=== PATIENT | female | born 1985 | race African-American/Black ===

== ENCOUNTER 2017-04-28 15:18 | Emergency (ER) | payer OTHER ==
[2017-04-28 15:37] VITALS: BMI 23.3
--- NOTE | 2017-04-28 15:39 | PDOC ---
Rapid Medical Evaluation Time Seen by Provider: 04/28/17 15:33 Medical Evaluation: Allergies Allergy/AdvReac Type Severity Reaction Status Date / Time No Known Allergies Allergy Verified 02/23/17 21:32 04/28/17 15:33 I have performed a brief in-person evaluation of this patient. The patient presents with a chief complaint of: 34 weeks (due date 06/09 ), denies any pain, sent by [facility] for "high heart rate" per paperwork BP 80s/60s, tachy to 130s , denies SOB, was at another hospital "20 minutes ago and i left bc it smelled like cigarettes", "i feel good" Pertinent physical exam findings: HR 134, well appearing I have ordered the following: CBC, CMP, T&S, PT/INR, ekg The patient will proceed to the ED for further evaluation. Discharge Disposition - Diagnosis Tachycardia - Referrals - Patient Instructions - Post Discharge Activity
[2017-04-28 16:43] LABS: BASO % 0.5 % (0-2.0); EOS % 1.1 % (0-4.5); HEMATOCRIT 34.1 % (32.4-45.2); HEMOGLOBIN 11.2 GM/dL (10.7-15.3); LYMPH % 16.4 % (8-40); MCH 29.8 pg (25.7-33.7); MCHC 32.9 g/dl (32.0-36.0); MEAN CELL VOLUME 90.6 fl (80-96); MEAN PLT VOLUME 7.7 fl (7.5-11.1); MONO % 9.4 % (3.8-10.2); NEUT % 72.6 % (42.8-82.8); PLATELET COUNT 393 K/MM3 (134-434); RBC 3.77 M/mm3 (3.60-5.2); RDW 13.9 % (11.6-15.6); WHITE BLOOD COUNT 8.9 K/mm3 (4.0-10.0)
[2017-04-28 17:01] LABS: INR 1.01 (0.82-1.09); PROTHROMBIN TIME (PATIENT) 11.4 SEC (9.98-11.88)
[2017-04-28 17:12] LABS: ALBUMIN 2.5 g/dl (3.4-5.0); ALK PHOS 330 U/L (45-117); ANION GAP 8 (8-16); BILIRUBIN,TOTAL 0.4 mg/dL (0.2-1.0); BLOOD UREA NITROGEN 5 mg/dL (7-18); CALCIUM 8.7 mg/dL (8.5-10.1); CHLORIDE 103 mmol/L (98-107); CO2 25 mmol/L (21-32); CREATININE 0.5 mg/dL (0.55-1.02); GLUCOSE,RANDOM 61 mg/dL (74-106); POTASSIUM 4.2 mmol/L (3.5-5.1); SGOT/AST 85 U/L (15-37); SGPT/ALT 30 U/L (12-78); SODIUM 136 mmol/L (136-145); TOT PROT 6.8 g/dl (6.4-8.2)
[2017-04-28] MEDS ORDERED: SODIUM CHLORIDE 1,000 ML IV STA (17:13)
--- NOTE | 2017-04-28 17:25 | PDOC ---
History of Present Illness - General Chief Complaint: Irregular Heart Beat Stated Complaint: RAPID HEARTBEAT (PCP SENT) Time Seen by Provider: 04/28/17 15:33 - History of Present Illness Initial Comments: 04/28/17 17:22 Ms. Moreno is a 31 yo (1 termination) female who presents from [facility] for increased heart rate at 34 weeks gestation. Per patient she has been feeling her normal self but was told to present to ER for evaluation when heart rate was noted to be high at her exam. She has no complaints at this time. The patient denies chest pain, shortness of breath, headache and dizziness. Denies fever, chills, nausea, vomit, diarrhea and constipation. Denies dysuria, frequency, urgency and hematuria. Allergies: NKDA Past History - Past Medical History Allergies/Adverse Reactions: Allergies Allergy/AdvReac Type Severity Reaction Status Date / Time No Known Allergies Allergy Verified 04/28/17 15:33 Home Medications: Ambulatory Orders Ferrous Sulfate [Feosol] 325 mg PO BID 02/23/17 Vitamins (Sjr) - 1 tab PO DAILY 02/23/17 COPD: No - Immunization History Td Vaccination: Yes TDAP Vaccination: Yes Immunization Up to Date: Yes - Suicide/Smoking/Psychosocial Hx Smoking Status: No Smoking History: Never smoked Years of Tobacco Use: 0 Number of Cigarettes Smoked Daily: 0 Cigars Per Day: 0 Hx Alcohol Use: No Drug/Substance Use Hx: No Substance Use Type: None Review of Systems - Review of Systems Comments:: 04/28/17 17:24 GENERAL/CONSTITUTIONAL: No fever or chills. No weakness. HEAD, EYES, EARS, NOSE AND THROAT: No change in vision. No ear pain or discharge. No sore throat. CARDIOVASCULAR: No chest pain or shortness of breath RESPIRATORY: No cough, wheezing, or hemoptysis. GASTROINTESTINAL: No nausea, vomiting, diarrhea or constipation. GENITOURINARY: No dysuria, frequency, or change in urination. MUSCULOSKELETAL: No joint or muscle swelling or pain. No neck or back pain. SKIN: No rash NEUROLOGIC: No headache, vertigo, loss of consciousness, or change in strength/ sensation. ENDOCRINE: No increased thirst. No abnormal weight change HEMATOLOGIC/LYMPHATIC: No anemia, easy bleeding, or history of blood clots. ALLERGIC/IMMUNOLOGIC: No hives or skin allergy. *Physical Exam - Vital Signs Last Vital Signs Temp Pulse Resp BP Pulse Ox 99.3 F 140 H 18 115/71 98 04/28/17 15:33 04/28/17 15:33 04/28/17 15:33 04/28/17 15:33 04/28/17 15:33 - Physical Exam Comments: 04/28/17 17:24 GENERAL: Awake, alert, and fully oriented, in no acute distress HEAD: No signs of trauma, normocephalic, atraumatic EYES: PERRLA, EOMI, sclera anicteric, conjunctiva clear ENT: Auricles normal inspection, hearing grossly normal, nares patent, oropharynx clear without exudates. Moist mucosa NECK: Normal ROM, supple, no lymphadenopathy, JVD, or masses LUNGS: No distress, speaks full sentences, clear to auscultation bilaterally HEART: Regular rate and rhythm, normal S1 and S2, no murmurs, rubs or gallops, peripheral pulses normal and equal bilaterally. ABDOMEN: +Abdomen protuberant consistent with 34 weeks gestational age. Soft, nontender, normoactive bowel sounds. No guarding, no rebound. No masses EXTREMITIES: Normal inspection, Normal range of motion, no edema. No clubbing or cyanosis. NEUROLOGICAL: Cranial nerves II through XII grossly intact. Normal speech, normal gait, no focal sensorimotor deficits SKIN: Warm, Dry, normal turgor, no rashes or lesions noted. ED Treatment Course - LABORATORY CBC & Chemistry Diagram: 04/28/17 16:22 04/28/17 16:32 - ADDITIONAL ORDERS Additional order review: Laboratory Results 04/28/17 04/28/17 16:32 16:32 PT with INR 11.40 INR 1.01 Sodium 136 Potassium 4.2 Chloride 103 Carbon Dioxide 25 Anion Gap 8 BUN 5 L Creatinine 0.5 L Creat Clearance w eGFR > 60 Random Glucose 61 L Calcium 8.7 Total Bilirubin 0.4 AST 85 H ALT 30 Alkaline Phosphatase 330 H Total Protein 6.8 Albumin 2.5 L 04/28/17 16:22 RBC 3.77 MCV 90.6 MCHC 32.9 RDW 13.9 MPV 7.7 Neutrophils % 72.6 Lymphocytes % 16.4 Monocytes % 9.4 Eosinophils % 1.1 Basophils % 0.5 Medical Decision Making - Medical Decision Making 04/28/17 18:33 Ms. Moreno is a 31 yo female w/ pmh as described who presents w/ tachycardia to the 150's. Labs sent for evaluation. Patient given 1L NS and oral water / juice for re-hydration. 04/28/17 19:00 Patient signed out to Dr. Lopez for further evaluation. *DC/Admit/Observation/Transfer Diagnosis at time of Disposition: Tachycardia - Referrals Referrals: Kim Engel MD [Primary Care Provider] - - Patient Instructions - Post Discharge Activity
[2017-04-28 19:12] LABS: URINE APPEARANCE CLEAR; URINE BILIRUBIN NEGATIVE (NEGATIVE); URINE BLOOD NEGATIVE (NEGATIVE); URINE COLOR LTYELLOW; URINE GLUCOSE (UA) NEGATIVE (NEGATIVE); URINE KETONE 1+ (NEGATIVE); URINE NITRITE NEGATIVE (NEGATIVE); URINE PROTEIN NEGATIVE (NEGATIVE); URINE UROBILINOGEN NEGATIVE mg/dL (0.2-1.0)
[2017-04-28 19:13] LABS: URINE LEUK ESTERASE 3+ (NEGATIVE)
[2017-04-28 19:17] LABS: EPI CELLS RARE /HPF (FEW); URINE MUCUS RARE
[2017-04-28 19:49] VITALS: TEMP 98.3
[2017-04-28 19:52] VITALS: BP 100/70; PULSE 135
--- NOTE | 2017-04-28 20:21 | PDOC ---
Attending Attestation - Resident Resident Name: Gus Morelandorn - ED Attending Attestation I have performed the following: I have examined & evaluated the patient, The case was reviewed & discussed with the resident, I agree w/resident's findings & plan, Exceptions are as noted - HPI HPI: 04/28/17 20:09 31 yo female sent from [address] [place] [address] for tachycardia. 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 she derek feeling any palpitaions and only noted some epigastric "tingking" whenin the ER UA only 2 wbc,cbc wnl no significant anemia,glu=61 and given food to eat her ekg was 151 bpm her pulse ox on room air was btwn 98-100 trop <0.02 Pt does not want to have monitoring and does not want further w/u for tachycardia,I explained to her my concern for PE -I spoke w Dr Allison and Dr Karl Ayala who wanted her tele OBS but she refused . I gave her Dr Santos's information address and tele number and told her to see him tomorrow morning and he would arrange for ECHO and further testing if necessary. she said she could not go tomoorrow. I told her to call 911 if she develop any chest pain,shortness of breath or dizziness She signed AMA and left - Physicial Exam PE: 04/28/17 21:38 31 yo female who is 34 weeks p/ asymptomatic tachycardia head ncat eyes yocasta eomi throat no exudates lungs no wheezing,no crackles, no rhonchi cvs tachycardia,no gallops,no rubs neck no bruits,no jvd abd protuberant but nontender ext no edema,no erythema neuro axox3,ambulatory skin warm,dry psych appropriate - Medical Decision Making 04/28/17 21:41 After speaking to radio interference supervisor and cardiology ,I recommended the pt stay overnight for ct scan and then cardiac OBS and ECHO in the morning but pt wanted to leave even though we discussed the need to r/o pulmonary embolism plan pt told to return if she dev any symptoms of chest pain or shortness of breath pt left AMA
--- NOTE | 2017-04-28 20:48 | CON.CARD ---
Consult Consult Specialty:: cardiology Reason for Consultation:: tachycardia; ? 34 wks - History of Present Illness Chief Complaint: asymptomatic History of Present Illness: 31 yo female sent from [address] [place] [address] for tachycardia. 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 she denies feeling any palpitations and only noted some epigastric "tinglng" when in the ER UA only 2 wbc,cbc wnl no significant anemia,glu=61 and given food to eat her ekg was 151 bpm her pulse ox on room air was btwn 98-100 trop <0.02 Pt does not want to have monitoring and does not want further w/u for tachycardia. - Alcohol/Substance Use Hx Alcohol Use: No - Smoking History Smoking history: Never smoked Aproximately how many cigarettes per day: 0 Home Medications - Allergies Allergies/Adverse Reactions: Allergies Allergy/AdvReac Type Severity Reaction Status Date / Time No Known Allergies Allergy Verified 04/28/17 15:33 - Home Medications Home Medications: Ambulatory Orders Vitamins (Sjr) - 1 tab PO DAILY 02/23/17 Family Disease History - Family Disease History Family History: Denies Vital Signs: Vital Signs Temperature 98.3 F 04/28/17 19:48 Pulse Rate 135 H 04/28/17 19:52 Respiratory Rate 18 04/28/17 19:52 Blood Pressure 100/70 04/28/17 19:52 O2 Sat by Pulse Oximetry (%) 100 04/28/17 19:52 - Other Data Labs, Other Data: CBC, BMP 04/28/17 16:22 04/28/17 16:32 INR, PTT INR 1.01 (0.82-1.09) 04/28/17 16:32 Troponin, BNP 04/28/17 17:48 Troponin I < 0.02 Troponin, BNP 04/28/17 17:48 Troponin I < 0.02 Problem List - Problems (1) Assessment/Plan: As discussed with Dr. Lopez, pt has sinus tachycardia found on routine Ob visit. She is asymptomatic; O2 sat 98-100% on RA; not tachypneic or febrile. TSH WNL. TNI < 0.02. BUN 5/Cr 0.5. Not anemic. No distinct hx or signs of PE, but this must be kept in mind. F/u D dimer. I asked that she be observed on telemetry overnight, and an ECHO done in am, but pt refused, and signed out AMA. She also reportedly did not wish to come to our office tomorrow for further evaluation and ECHO. Code(s): Z34.90 - ENCNTR FOR SUPRVSN OF NORMAL , UNSP, UNSP TRIMESTER (2) Tachycardia Code(s): R00.0 - TACHYCARDIA, UNSPECIFIED
--- NOTE | 2017-04-29 10:15 | EKG ---
Test Reason : Blood Pressure : / mmHG Vent. Rate : 152 BPM Atrial Rate : 152 BPM P-R Int : 088 ms QRS Dur : 064 ms QT Int : 320 ms P-R-T Axes : 000 071 -34 degrees QTc Int : 508 ms SINUS TACHYCARDIA WITH SHORT MI T WAVE ABNORMALITY, CONSIDER INFERIOR ISCHEMIA T WAVE ABNORMALITY, CONSIDER ANTEROLATERAL ISCHEMIA ABNORMAL ECG NO PREVIOUS ECGS AVAILABLE Confirmed by ARNEL SUN MD ([id number]) on 04/29/2017 10:15:07 AM Referred By: Confirmed By:ARNEL SUN MD
== END 2017-04-28 20:20 | disposition left against medical advice (07) ==
LOC: SUPCPDRO 15:18 → JER 15:18
DX: O26.893 Other specified pregnancy related conditions, third trimester (principal); O99.413 Diseases of the circulatory system complicating pregnancy, third trimester; R00.0 Tachycardia, unspecified; Z3A.34 34 weeks gestation of pregnancy
CPT/HCPCS: 36415; 80053; 81003; 81015; 82550; 82553; 84443; 84484; 85025; 85610; 86850; 86900; 86901; 93005; 93010; 99284-25

== ENCOUNTER 2017-05-08 22:35 | Inpatient (IN) | payer OTHER ==
[2017-05-08] MEDS: DEXTROSE 5%-LACTATED RINGERS 1,000 ML IV SCH (23:55)
[2017-05-08] MEDS ORDERED: BETAMET ACET/BETAMET NA PH 30 MG/5 ML VIAL ONE (23:55)
[2017-05-08] MEDS ORDERED: AMPICILLIN - 2 GM in SODIUM CHLORIDE 100 ML IVPB ONE (23:58)
[2017-05-09] MEDS ORDERED: AMPICILLIN SODIUM 2 GM VIAL ONE (00:02)
--- NOTE | 2017-05-09 00:07 | HP ---
Past Medical History - Primary Care Physician PCP:: Fernanda Austin - Admission Chief Complaint: 31 yrs , 35.3 weeks c/o abdomilal pain for 2 days , mainly RLQ, RMQ. & also epigastriic area, she feels when movements felt. no c/o vomitong or diarrhea or fever History of Present Illness: patient states she had pnc at [facility]( [facility] ) wt gain 20 lbs . 1 hr gtt normal as per pt, PPD was neg, she states all tests were normal, she had no infections chart not available, try to obtain the records 04/28/17 incidental tachycardia ( maternal ) noted on routine visit , cardiology consult obtained in ER at [facility] seen in 02/23/2017 at 24 weeks in L&D for llq pain, abd sono was done normal., no evidence ovarian torsion , no pregn sono measurements noted History Source: Patient Limitations to Obtaining History: No Limitations - Past Medical History GEODETIC COMPUTATOR: No: Migraine, Seizure, Syncope Cardiovascular: Yes: Other (pt seen [facility] ER for maternal tachycardia , cardiac consult obtained from Dr Santos., suspected sinus tacycardia , gave impression Tachycardia unspecified. pt refused Telemetry observation & ECHO then & also refused follow up in MDs office). No: HTN, Murmur Pulmonary: No: Asthma Gastrointestinal: Yes: Other (denies any GI complains) Renal/: No: UTI ...: 2 ...Para: 0 ...Induced : 1 ...EDC by Sono: 06/09/17 (35.3/7 weeks . LMP & dates unknown ) Heme/Onc: Yes: Anemia (pt states she was anemic , was taking iron pills Bid , after improvement she currently is taking po iron once a week) Infectious Disease: Yes: Other (declines any std) Psych: Yes: Other (declines any mental disorders) Endocrine: No: Diabetes Mellitus, Hyperthyroidism, Hypothyroidism (04/28/17 TSH checked in ER normal) - Past Surgical History Past Surgical History: Yes: None Hx Myomectomy: No Hx Transabdominal Cerclage: No - Smoking History Smoking history: Never smoked Aproximately how many cigarettes per day: 0 - Alcohol/Substance Use Hx Alcohol Use: No History of Substance Use: reports: None Home Medications - Allergies Allergies/Adverse Reactions: Allergies Allergy/AdvReac Type Severity Reaction Status Date / Time No Known Allergies Allergy Verified 05/08/17 23:53 - Home Medications Home Medications: Ambulatory Orders Vitamins (Sjr) - 1 tab PO DAILY 02/23/17 Ferrous Sulfate 1 tab PO WEEKLY 05/09/17 Physical Exam - Maternity Constitutional: Yes: Anxious, Mild Distress, Pallor Eyes: Yes: WNL HENT: Yes: WNL, Normocephalic Neck: Yes: WNL Cardiovascular: Yes: WNL, Tachycardia (variable HR 90 -130) Lungs: Clear to auscultation Breast(s): Yes: WNL. No: Mass - Abdominal Exam/OB Fundal Height: 36 (non specific tenderness all over abd on palpation) Number of Fetuses: Single Presentation: Vertex Contractions: Yes Regularity: Irregular (4-7 min) Intensity: Mild/Mod Monitor Mode: External Heart Rate (range): 150-160 Heart Rate Location: [facility] Category: I Accelerations: Uniform - Vaginal Exam/OB Vaginal Bleediing: No Speculum Exam: No Dilatation (cm): 4 Effacement (%): 100 Amniotic Membrane Status: Intact Presentation: Vertex/Position Station: 0 - Physical Exam Musculoskeletal: Yes: WNL Extremities: Yes: WNL. No: Calf Tenderness Edema: No Integumentary: Yes: WNL Deep Tendon Reflex Grade: Normal +2 ...Motor Strength: WNL Psychiatric: Yes: WNL, Alert, Oriented, Other (anxious) - Labs Lab Results: Laboratory Tests 05/09/17 05/09/17 05/09/17 00:30 00:30 00:30 WBC 11.3 H RBC 3.82 Hgb 11.1 Hct 33.8 MCV 88.7 MCH 29.0 MCHC 32.7 RDW 14.4 Plt Count 586 H D MPV 8.0 Neutrophils % 77.9 Lymphocytes % 10.9 D Monocytes % 10.7 H Basophils % 0.3 PT with INR 12.10 H INR 1.07 PTT (Actin FS) 29.2 Sodium Potassium Chloride Carbon Dioxide BUN Creatinine Random Glucose Uric Acid AST ALT Total Protein Urine Protein 1+ H Urine Ketones 2+ H Urine Blood 3+ H Urine Urobilinogen 4.0 e.u/dl H Ur Leukocyte Esterase 1+ H D Urine WBC (Auto) 6 Urine RBC (Auto) 9 HIV 1&2 Antibody Screen HIV P24 Antigen 05/09/17 05/09/17 00:30 00:30 WBC RBC Hgb Hct MCV MCH MCHC RDW Plt Count MPV Neutrophils % Lymphocytes % Monocytes % Basophils % PT with INR INR PTT (Actin FS) Sodium 134 L Potassium 4.7 Chloride 100 Carbon Dioxide 20 L BUN 6 L Creatinine 0.5 L Random Glucose 73 L Uric Acid 6.7 AST 110 H ALT 24 Total Protein 6.8 Urine Protein Urine Ketones Urine Blood Urine Urobilinogen Ur Leukocyte Esterase Urine WBC (Auto) Urine RBC (Auto) HIV 1&2 Antibody Screen Negative HIV P24 Antigen Negative Problem List - Problems (1) 35 to 36 weeks gestation of Code(s): UCB2702 - (2) labor in third trimester Code(s): O60.03 - LABOR WITHOUT DELIVERY, THIRD TRIMESTER Qualifiers: Fetus number: single or unspecified fetus (3) with care elsewhere Code(s): Z34.90 - ENCNTR FOR SUPRVSN OF NORMAL , UNSP, UNSP TRIMESTER (4) Tachycardia Code(s): R00.0 - TACHYCARDIA, UNSPECIFIED Assessment/Plan 31 yrs , 35.3 weeks in labor , care elsewhere . PLAN : expectant management No tocolysis since advance cx dilatation 4 cm since UC are infrequnt , rx betamethasone x 2 doses x12 hr , if she does not progress in labor Gbs prophylaxis . If progress in labor , trial of labor for vaginal delivery . Monitor maternal HR . chart could not be obtained from the associate [facility]
[2017-05-09 00:57] LABS: BASO % 0.3 % (0-2.0); EOS % 0.2 % (0-4.5); HEMATOCRIT 33.8 % (32.4-45.2); HEMOGLOBIN 11.1 GM/dL (10.7-15.3); LYMPH % 10.9 % (8-40); MCHC 32.7 g/dl (32.0-36.0); MEAN CELL VOLUME 88.7 fl (80-96); MONO % 10.7 % (3.8-10.2); NEUT % 77.9 % (42.8-82.8); PLATELET COUNT 586 K/MM3 (134-434); RBC 3.82 M/mm3 (3.60-5.2); RDW 14.4 % (11.6-15.6); WHITE BLOOD COUNT 11.3 K/mm3 (4.0-10.0)
[2017-05-09 01:01] LABS: URINE APPEARANCE CLEAR; URINE BILIRUBIN NEGATIVE (NEGATIVE); URINE BLOOD 3+ (NEGATIVE); URINE COLOR DKYELLOW; URINE GLUCOSE (UA) NEGATIVE (NEGATIVE); URINE KETONE 2+ (NEGATIVE); URINE NITRITE NEGATIVE (NEGATIVE); URINE UROBILINOGEN 4.0 E.U/dl mg/dL (0.2-1.0)
[2017-05-09 01:05] LABS: COCAINE, UR NEGATIVE ng/ml (CUTOFF=300); METHADONE, UR NEGATIVE ng/ml (CUTOFF=300); OPIATES, URI NEGATIVE ng/ml (CUTOFF=300); PHENCYCLIDINE,URINE NEGATIVE ng/ml (CUTOFF=25); URINE AMPHETAMINES NEGATIVE ng/ml (CUTOFF=500); URINE BARBITURATES NEGATIVE ng/ml (CUTOFF=200); URINE BENZODIAZEPINES NEGATIVE ng/ml (CUTOFF=200)
[2017-05-09 01:07] LABS: URINE LEUK ESTERASE 1+ (NEGATIVE); URINE PROTEIN 1+ (NEGATIVE)
[2017-05-09 01:08] LABS: EPI CELLS RARE /HPF (FEW); URINE BACTERIA RARE /hpf (NONE SEEN); URINE HYALINE CAST 1 /lpf; URINE MUCUS FEW
[2017-05-09 01:14] LABS: INR 1.07 (0.82-1.09); PROTHROMBIN TIME (PATIENT) 12.1 SEC (9.98-11.88)
[2017-05-09 01:17] LABS: ACTIVATED PTT 29.2 SECONDS (26.9-34.4)
[2017-05-09 01:23] LABS: ANION GAP 14 (8-16); BILIRUBIN,TOTAL 0.6 mg/dL (0.2-1.0); BLOOD UREA NITROGEN 6 mg/dL (7-18); CALCIUM 9.2 mg/dL (8.5-10.1); CHLORIDE 100 mmol/L (98-107); CO2 20 mmol/L (21-32); CREATININE 0.5 mg/dL (0.55-1.02); GLUCOSE,RANDOM 73 mg/dL (74-106); POTASSIUM 4.7 mmol/L (3.5-5.1); SGOT/AST 110 U/L (15-37); SGPT/ALT 24 U/L (12-78); SODIUM 134 mmol/L (136-145); TOT PROT 6.8 g/dl (6.4-8.2); URIC ACID 6.7 mg/dL (2.6-7.2)
[2017-05-09 01:24] LABS: ALK PHOS 501 U/L (45-117)
[2017-05-09 02:27] VITALS: BMI 23.3
[2017-05-09] MEDS ORDERED: AMPICILLIN SODIUM 1 GM VIAL ONE ×3 (03:57→11:13)
[2017-05-09] MEDS: AMPICILLIN - 1 GM in SODIUM CHLORIDE 100 ML IVPB SCH ×3 (04:00→11:54)
[2017-05-09] MEDS: DEXTROSE 5%-LACTATED RINGERS 1,000 ML IV SCH (06:42)
--- NOTE | 2017-05-09 06:55 | PN ---
Progress Note (short form) - Note Progress Note: pt feels better, she does not experience pain any more monitor shows uc are 5-8-10 min ,infrequent , mild FHR 140-150 reactive, cat-1 maternal HR variable 90-130-140 bpm ekg done no change from EKG on 04/28/17 uric acid 6.7,AST-110, ALT-2, Plt -586, urine protein, 1+, ketone3+, rbc 2+ urine drug tox neg urine concentrated pt receiving 150 cc/hr. Iv Ampicillin for Gbs prophylaxis in progress Repeat pelvic exam : at 6.30 AM 4-5 cm/100%/ 0 station /Memb intact/bloody show is noted Ass: 35.3/7 weeks labor , s/p dehydration , maternal tachycardia, unable to r/o preclempsia due to elevated liver enz, uric acid insignificant progress in dilatation & descent Plan ; will do sonogram bpp cardiology consult . continue expectant management. Selected Entries 05/09/17 05/09/17 05/09/17 02:00 03:00 04:00 Temperature Pulse Rate 120 H 85 98 H Blood Pressure 125/79 125/72 120/71 05/09/17 05/09/17 05:00 06:00 Temperature 98.3 F Pulse Rate 89 90 Blood Pressure 124/71 129/68 Problem List - Problems (1) 35 to 36 weeks gestation of Code(s): BIS0338 - (2) labor in third trimester Code(s): O60.03 - LABOR WITHOUT DELIVERY, THIRD TRIMESTER Qualifiers: Fetus number: single or unspecified fetus (3) with care elsewhere Code(s): Z34.90 - ENCNTR FOR SUPRVSN OF NORMAL , UNSP, UNSP TRIMESTER (4) Tachycardia Code(s): R00.0 - TACHYCARDIA, UNSPECIFIED
--- NOTE | 2017-05-09 11:03 | PN ---
Progress Note (short form) - Note Progress Note: ob us report : SLIUP 36.2 weeks,, cephalic,BPP 8/8, CRISTA 6.4, MVP 2.2, complex cystic mass 15.2x8.2x12.4 cm possible etiology hemorrhagic, possible abscess collection, complex cystic neoplasm . HR tracing 120 -130 bpm cat-1 uc q10-12 min pt pain in rlq not severe like yesterday , clinically not tender on palpation . Selected Entries 05/09/17 10:00 Temperature 97.7 F Pulse Rate 85 Blood Pressure 139/85 maternal HR 70-90-120 bpm . ECHO ordered by favor maker. Repeat Pelvic exam at 11.05 AM 4 cm/100%/IN/ Vx0/+1 station/bloody show Plan transfer to [facility]. 10.55AM transfer call center notified ( ) 11.30 AM Sammy Finnegan accepted the transfer .To be transferred by Critical team Pt explained , she accepts trnsfer . favor maker informed to cancel ECHO. 12.30 PM pt transferred to [facility] by [facility] ( [facility]) . Problem List - Problems (1) 35 to 36 weeks gestation of Code(s): [id number] - (2) labor in third trimester Code(s): O60.03 - LABOR WITHOUT DELIVERY, THIRD TRIMESTER Qualifiers: Fetus number: single or unspecified fetus (3) with care elsewhere Code(s): Z34.90 - ENCNTR FOR SUPRVSN OF NORMAL , UNSP, UNSP TRIMESTER (4) Tachycardia Code(s): R00.0 - TACHYCARDIA, UNSPECIFIED (5) Right ovarian cyst Code(s): N83.201 - UNSPECIFIED OVARIAN CYST, RIGHT SIDE
[2017-05-09] MEDS ORDERED: BETAMET ACET/BETAMET NA PH 30 MG/5 ML VIAL IM SCH ×2 (12:00→23:59)
[2017-05-09 12:04] VITALS: BP 132/77; PULSE 88; TEMP 98.3
--- NOTE | 2017-05-09 22:46 | EKG ---
Test Reason : Blood Pressure : / mmHG Vent. Rate : 127 BPM Atrial Rate : 127 BPM P-R Int : 140 ms QRS Dur : 068 ms QT Int : 290 ms P-R-T Axes : -45 040 004 degrees QTc Int : 421 ms UNUSUAL P AXIS, POSSIBLE ECTOPIC ATRIAL TACHYCARDIA NONSPECIFIC T WAVE ABNORMALITY ABNORMAL ECG WHEN COMPARED WITH ECG OF 28-APR-2017 17:06, ECTOPIC ATRIAL RHYTHM HAS REPLACED SINUS RHYTHM T WAVE INVERSION LESS EVIDENT IN INFERIOR LEADS T WAVE INVERSION LESS EVIDENT IN ANTERIOR LEADS Confirmed by MD OSWALDO, LINDA ([id number]) on 05/09/2017 10:45:52 PM Referred By: ISABELLA Confirmed By:LINDA CHACON MD
[2017-05-10 06:36] LABS: HBsAG SCREEN Negative (Negative)
== END 2017-05-09 12:30 | disposition short-term general hospital (02) | DRG 566 ==
LOC: JDEL 22:35 → JLDR 23:45
PROVIDERS: ADMIT Obstetrics & Gynecology; ATTEND Obstetrics & Gynecology
DX: O75.89 Other specified complications of labor and delivery (principal); R00.0 Tachycardia, unspecified; E86.0 Dehydration; O34.83 Maternal care for other abnormalities of pelvic organs, third trimester; N83.201 Unspecified ovarian cyst, right side; Z3A.35 35 weeks gestation of pregnancy
CPT/HCPCS: 36415; 76819-TC; 80053; 80307; 81003; 81015; 84550; 85025; 85610; 85730; 86593; 86762; 86850; 86900; 86901; 87086; 87340; 87389; 93005; 93010; 96372